=== PATIENT | male | born 1965 | race Caucasian/White ===

== ENCOUNTER 2020-04-02 08:22 | Outpatient (REF) | payer SELFPAY ==
[2020-04-02 11:16] LABS: Blood Donor Cholesterol 145
== END 2020-04-02 08:23 | disposition home or self-care (01) ==
LOC: HO.LNP 08:22
PROVIDERS: Visit Provider Pathology Anatomic Pathology & Clinical Pathology
DX: Z13.220 Encounter for screening for lipoid disorders (principal)
CPT/HCPCS: 36415; 82465

== ENCOUNTER 2020-05-28 11:36 | Outpatient (REF) | payer SELFPAY ==
[2020-05-28 12:39] LABS: Cholesterol 169 mg/dL
[2020-05-28 12:59] LABS: SARS COV2 IgG Negative (Negative)
== END 2020-05-28 11:37 | disposition home or self-care (01) ==
LOC: HO.LNC 11:36
PROVIDERS: Visit Provider Pathology Anatomic Pathology & Clinical Pathology
DX: Z20.828 Contact with and (suspected) exposure to other viral communicable diseases (principal)
CPT/HCPCS: 82465; 86769

== ENCOUNTER 2024-07-29 15:22 | Emergency (ER) | payer BC, SELFPAY ==
--- NOTE | ~2024-07-29 | US_ITS ---
CLINICAL HISTORY: pain swelling Venous duplex ultrasound right lower extremity Comparison: None Findings: The visualized deep veins are fully compressible with normal Doppler color flow and spectral tracings. Superior to the right patella in the subcutaneous tissues there is a heterogeneous nonvascular hypoechoic collection, which may be a hematoma within the subcutaneous tissues or complex prepatellar bursa. IMPRESSION: 1. Negative for right lower extremity deep vein thrombosis. 2. Superior to the right patella is a heterogeneous nonvascular hypoechoic collection, which could be a hematoma or complex prepatellar bursa. This document has been electronically signed by: Lino Sorensen MD on 07/29/2024 19:03:56
--- NOTE | ~2024-07-29 | XR_ITS ---
CLINICAL HISTORY: fall 5 view right knee Comparison: None Findings: No fractures or dislocations. No significant arthritic change or erosions. No joint effusion. No radiopaque foreign body. IMPRESSION: 1. No acute findings. This document has been electronically signed by: Anitra Arora MD on 07/29/2024 16:19:04
[2024-07-29 15:37] VITALS: BP 144/64; PULSE 76; RESP 19; TEMP 37.1; O2SAT 98; BMI 36.2
--- NOTE | 2024-07-29 15:40 | ED.EXTPRO ---
HPI - Extremity Problem General Chief complaint: Extremity Injury, Lower Stated complaint: right knee swelling/pain fell 07/19 Time Seen by Provider: 07/29/24 17:47 History of Present Illness ED Provider: Johnny Galvez MD Related Data Previous Rx's ?Medication ?Instructions ?Recorded cefadroxil 500 mg capsule 500 mg PO BID 5 days #10 caps 07/29/24 Allergies Allergy/AdvReac Type Severity Reaction Status Date / Time bee pollen [BEE STINGS] Allergy Unknown ANAPHYLAXIS Verified 07/29/24 15:41 [facility] Social History Social History (System 03/09/24 @ 16:10 by Jannette Shepherd) Smoked in Last 30 Days: No Use of substances other than those prescribed or required for medical reasons: No Advance Directives: No Advance Directives Information Provided: Yes Do you have a plan to hurt others: No Plan Physical Exam Vital Signs: Vital Signs: Last Vital Signs Temp 97.8 F 07/29/24 19:08 Pulse 61 07/29/24 19:08 Resp 18 07/29/24 19:08 BP 138/49 L 07/29/24 19:08 Pulse Ox 100 07/29/24 19:08 O2 Del Method Room Air 07/29/24 19:08 BMI result Body Mass Index 36.2 Course Course Course Narrative: 59 yo male with PMH of HLD, anxiety, HTN, not on blood thinners here with c/o 1 week ago fell directly on R knee it swelled up 2 hours later he saw his PCP who reported negative xrays he notes the leg is now swollen and he has bruising up the back of the leg. He has never had a clot before. No CP/SOB. No travel after the injury. He is nervous that given the leg is swollen he has infection or DVT. On exam leg is not red or hot has sig joint effusion suspect hemarthrosis and has bruising up the leg as well. He will need xray and blood studies, DVT study ordered this is a RAPID medical screening exam the rest of the history and physical exam is to be done by the main provider. Medications Administered Discontinued Medications Generic Name Dose Route Start Last Admin Trade Name Freq PRN Reason Stop Dose Admin Cephalexin HCl 500 mg 07/29/24 18:49 07/29/24 18:56 Cephalexin 500 Mg Capsule PO 07/29/24 18:50 500 mg ONCE ONE Administration Lidocaine/Epinephrine 10 ml 07/29/24 18:13 07/29/24 18:40 Lidocaine Hcl 1%/Epi 1:100,000 10 Ml Vial INFILTRATI 07/29/24 18:14 10 ml ONCE ONE Administration Medical Decision Making Medical Decision Making [facility] Narrative: 59-year-old male fell 1 week ago on the right knee. Prior to my evaluation DVT has been excluded. The patient an outpatient x-ray excluding bony fracture per his verbal report. He has diffuse swelling limiting his ability to flex the knee and bear weight. Feel some swelling extending down the leg. shared decision-making I offered therapeutic incision and drainage due to the severity of the subcutaneous hemorrhage which was identified on ultrasound as not involving the joint could be bursa or subcutaneous. Either way the patient was agreeable we made an 2 cm incision and drained copious clots out I would EMS estimated approximately 100-150 cc of clot. Patient tolerated well we put on a pressure dressing left a packing and the patient will follow up with the wound care he is unable to get there he can come back here for wound evaluation in 2 days. We will start antibiotics due to the invasive nature of the procedure. Lab Data [facility] Lab Attestation statement: I reviewed the patient's lab results. Mild anemia from baseline. I have advised the patient not donate blood which he was supposed to as he does regularly this coming Wednesday07/29/24 16:33 07/29/24 16:33 Labs: Lab Results 07/29/24 Range/Units 16:33 WBC 7.0 (4.8-10.8) X10*3/uL RBC 4.19 L (4.60-5.80) X10*6/uL Hgb 11.4 L (14.0-18.0) g/dl Hct 35.6 L (42.0-52.0) % MCV 85.0 (80.0-98.0) fL MCH 27.2 (27.0-33.0) pg MCHC 32.0 (31.0-36.0) g/dl RDW 14.6 (11.0-16.0) % Plt Count 225 (160-400) X10*3/uL MPV 9.8 (9.4-12.4) fL Immature Gran % (Auto) 0.3 (0.0-0.4) % Neut % (Auto) 69.6 (45-73) % Lymph % (Auto) 16.8 L (20-40) % [place] % (Auto) 11.1 H (2-11) % Eos % (Auto) 1.8 (0-4) % Baso % (Auto) 0.4 (0-2) % Lymph # (Auto) 1.2 (1.2-4.9) X10*3/uL [place] # (Auto) 0.8 (0.1-1.2) X10*3/uL Eos # (Auto) 0.1 (0.0-0.4) X10*3/uL Baso # (Auto) 0.0 (0.0-0.2) X10*3/uL Abs Immat Gran (auto) 0.02 (0.00-0.03) X10*3/uL Absolute Neuts (auto) 4.9 (2.0-8.3) x10*3/uL Absolute Nucleated RBC 0.000 (0.0-0.012) X10*3/uL Nucleated RBC % (auto) 0.0 (0.0-0.2) /100WBC Sodium 141 (135-145) mmol/L Potassium 5.0 (3.3-5.1) mmol/L Chloride 108 (96-108) mmol/L Carbon Dioxide 28 (22-29) mmol/L Anion Gap 10 L (12-20) BUN 18 H (9-16) mg/dL Creatinine 0.74 (0.5-1.4) mg/dL Estim Creat Clear Calc 126.4 Estimated GFR > 60 Random Glucose 96 (60-115) mg/dL Calcium 9.4 (8.4-10.2) mg/dL Independent Interpretation I performed an independent interpretation of an: Ultrasound Interpretation: DVT negative. Procedures Abscess I/D Site: other ( Right knee) Side (if applicable): right Local Anesthetic: lidocaine 1% and with epi Amount of anesthesia used (mL): 10 Technique: incised with blade and ultrasound guided Amount of fluid expressed (mL): 150 Sent for culture/gram staining?: No Irrigation: Yes Packing used?: iodoform Critical Care Time Critical Care Time Attestation: Critical Care Procedure Note Authorized and Performed by: MD Name I, Johnny Galvez MD, independently performed critical care. Total critical care time: Approximately 30 minutes Due to a high probability of clinically significant, life threatening deterioration, the patient required my highest level of preparedness to intervene emergently and I personally spent this critical care time directly and personally managing the patient. This critical care time included obtaining a history; examining the patient; pulse oximetry; ordering and review of studies; arranging urgent treatment with development of a management plan; evaluation of patient's response to treatment; frequent reassessment; and, discussions with other providers. This critical care time was performed to assess and manage the high probability of imminent, life-threatening deterioration that could result in multi-organ failure. It was exclusive of separately billable procedures and treating other patients and teaching time. Brief narrative of care: Pt though HD stable has compartment bleeding resulting in significant blood loss and relative anemia. Discharge Plan Discharge Clinical Impression: Hematoma Patient Disposition: Home, Self-Care Instructions: Hematoma (ED) Additional Instructions: DISCHARGE DIAGNOSES: Hemorrhage in the skin above the knee. HISTORY OF PRESENTATION: Swelling 1 week after fall on the right knee] EMERGENCY DEPARTMENT COURSE,TESTS, TREATMENTS: While in the ED today DISCHARGE MEDICATIONS: antibiotics take them as prescribed prophylactically FOLLOW-UP: Call your primary or general physician soon as possible to discuss your symptoms, your ED visit and to discuss follow up plans we would like you to follow up in the [facility]. you need to have your wound evaluated in 2 days. If unable to be seen in 2 days go to your nearest urgent care center or return to our emergency department for wound check INSTRUCTIONS & RETURN PRECAUTIONS: If any symptoms change first call your primary physician, if it is after-hours your primary doctors office should have a provider slot floorperson you can speak with. If the symptoms are severe or very concerning to you then call 911 or return to the ED. return if you develop a severe heavy bleeding soaking the Kota wrap, lightheadedness, dizziness Johnny Galvez MD Emergency Physician [facility] Prescriptions: New cefadroxil 500 mg capsule 500 mg PO BID 5 Days Qty: 10 0RF Interventions: ED Discharge Assessment Last Done: 07/29/24 19:08 Discharge Date/Time: 07/29/24 19:08 Print Language: Swedish
[2024-07-29 16:41] LABS: MANUAL DIFF FLAG NO
[2024-07-29 16:46] LABS: Basophils Percent Auto 0.4 % (0-2); Eosinophils Absolute Auto 0.1 X10*3/uL (0.0-0.4); Eosinophils Percent Auto 1.8 % (0-4); Hematocrit 35.6 % (42.0-52.0); Hemoglobin 11.4 g/dl (14.0-18.0); Imm Gran Abs Auto 0.02 X10*3/uL (0.00-0.03); Imm Gran Pct Auto 0.3 % (0.0-0.4); Lymphocytes Absolute Auto 1.2 X10*3/uL (1.2-4.9); Lymphocytes Percent Auto 16.8 % (20-40); Mean Corpuscular Hemoglobin 27.2 pg (27.0-33.0); Mean Platelet Volume 9.8 fL (9.4-12.4); Monocytes Absolute Auto 0.8 X10*3/uL (0.1-1.2); Monocytes Percent Auto 11.1 % (2-11); Neutrophils Absolute Auto 4.9 x10*3/uL (2.0-8.3); Neutrophils Percent Auto 69.6 % (45-73); Platelet Count 225 X10*3/uL (160-400); Red Blood Count 4.19 X10*6/uL (4.60-5.80); Red Cell Distribution Width 14.6 % (11.0-16.0)
[2024-07-29 17:03] LABS: Anion Gap 10 (12-20); Blood Urea Nitrogen 18 mg/dL (9-16); Calcium 9.4 mg/dL (8.4-10.2); Carbon Dioxide 28 mmol/L (22-29); Chloride 108 mmol/L (96-108); Creatinine Clr Calc Pharmacy 126.4; Estimated Glomerular Filt Rate > 60; Glucose Random 96 mg/dL (60-115); Sodium 141 mmol/L (135-145)
--- NOTE | 2024-07-29 18:16 | PC.NURSE ---
ultrasound being completed at this time.
[2024-07-29 18:32] VITALS: BP 138/49; PULSE 61; RESP 18; O2SAT 100
[2024-07-29] MEDS: Lidocaine HCl 1%/Epi 1:100,000 10 ML VIAL INFILTRATI (18:40)
[2024-07-29] MEDS: cephALEXin 500 MG CAPSULE PO (18:56)
[2024-07-29 19:08] VITALS: BP 138/49; PULSE 61; RESP 18; TEMP 36.6; O2SAT 100
== END 2024-07-29 19:08 | disposition home or self-care (01) ==
PROVIDERS: Emergency Medicine; Emergency Provider Emergency Medicine; PCP Internal Medicine
DX: S80.01XA Contusion of right knee, initial encounter (principal); W19.XXXA Unspecified fall, initial encounter; M25.461 Effusion, right knee; M79.89 Other specified soft tissue disorders; I10 Essential (primary) hypertension; E78.5 Hyperlipidemia, unspecified; Y93.9 Activity, unspecified; Y92.9 Unspecified place or not applicable; Y99.9 Unspecified external cause status
CPT/HCPCS: 10140; 36415; 73564; 80048; 85025; 93971; 99284; J2004

== ENCOUNTER → 2024-07-29 15:38 | Outpatient (BNV) | payer BC, SELFPAY | PROVIDERS: PCP Internal Medicine; Visit Provider Radiology Diagnostic Radiology | DX: R22.41 Localized swelling, mass and lump, right lower limb (principal); S80.01XA Contusion of right knee, initial encounter | CPT/HCPCS: 73564; 93971 ==

== ENCOUNTER 2024-08-30 08:21 | Outpatient (REF) | payer BC, SELFPAY ==
--- NOTE | ~2024-08-30 | XR_ITS ---
EXAMINATION: XR KNEE, RIGHT CLINICAL INFORMATION: M25.569 - Pain in unspecified knee COMPARISON: 07/29/24 TECHNIQUE: AP view bilateral knees standing, patellofemoral views right knee. FINDINGS: Left Knee: Normal imaging appearance. Minimal medial and lateral compartment joint space loss. Normal soft tissues. Right Knee: No fracture, dislocation, or suspicious bone lesion. Lateral compartment joint space narrowing. Normal alignment. Mild osteoarthrosis patellofemoral compartment, most significant lateral facet. Normal soft tissues. XR/XR knee RT 2V IMPRESSION: 1. Minimal osteoarthritis bilateral knees. Electronically signed by: Shayne Stewart MD 09/04/2024 09:12 AM EDT
--- OUTSIDE RECORDS SUMMARY | 2024-08-30 08:47 | XMS_ITS | Patient Health Record ---
Author Organization [facility] Address [address] [place] [address] Care Team Providers Care Transport Coordinator Name Role Phone Gilberto Griffin MD Primary Care Provider Renato Diamond [phone] Allergies Allergen (clinical drug ingredient) Drug/Non Drug Allergy documented on EMR Reaction Allergy Type Onset Date Status bees (uncoded) Unknown Allergy Activ e Reason For Referral No Information Medications Medication SIG (Take, Route, Frequency, Duration) Notes [...] Once a day for 30 day(s) Active Immunizations Vaccine Route Administration Date Status Comme nts Influenza Unknown 03/02/2019 Administered Social History Tobacco Use: Social History Observation Description Date Details (start date - stop date) Never Smoker NA - NA Tobacco Use/Smoking Question Answer Notes Patient is [...] Never (0 point) Points 2 Interpretation Negative Section Notes: Nonsmoker; no sig alcohol Nonsmoker; no sig alcohol co uple beers a week Problems Problem Type SNOMED Code ICD Code Onset Dates Problem Status W/U Status Risk Notes Problem Colon cancer screening (671152336) Colon cancer screening (Z12.11) Active confirmed Problem 794319485 Encounter for screening for malignant neoplasm of colon (Z12.11) Active confirmed Problem History of polyp of colon (situation) (656568202) Personal history of colonic polyps (Z86.010) Active confirmed Problem Pre-procedure evaluation check (196054818) Encounter for other preprocedural examination (Z01.818) Active confirmed Problem [id number] Preprocedural examination (Z01.818) Active confirmed Vital Signs Blood pressure diastolic 00 mm Hg 07/11/2024 Height 68 in 07/11/2024 Blood pressure systolic 00 mm Hg 07/11/2024 Weight 242 lbs 07/11/2024 BMI 36.79 kg/m2 07/11/2024 Encounters Encounter Location Date Provider Diagnosis [facility] [address] [place] [address] 07/11/2024 Renato Spencer Encounter for screen ing for malignant neoplasm of colon Z12.11 ; Encounter for other preprocedural examination Z01.818 ; Colon cancer screening Z12.11 and Personal history of colonic polyps Z86.010 Assessments Encounter Date Diagnosis (ICD Code) Assessment Notes Treatment Notes Treatment Clinical Notes Section Notes 07/11/2024 Encounter for screening for malignant neoplasm of colon (ICD-10 - Z12.11) Overall, Cherelle appears quite well. Given his personal history of a tubular adenoma removed over 5 years ago and his excellent clinical appearance, I did recommend a followup colonoscopy for further screening purposes. We did review the rationale for that in regard to colon cancer prevention. Full consent was obtained for this, including risks of bleeding and perforation. The procedure will be done with monitored anesthesia care. Cherelle was comfortable with this plan. Thank you again for allowing me to participate in Cherelle's care. I shall continue to keep you advised of his progress. 07/11/2024 Encounter for other preprocedural examination (ICD-10 - Z01.818) Overall, Cherelle appears quite well. Given his personal history of a tubular adenoma removed over 5 years ago and his excellent clinical appearance, I did recommend a followup colonoscopy for further screening purposes. We did review the rationale for that in regard to colon cancer prevention. Full consent was obtained for this, including risks of bleeding and perforation. The procedure will be done with monitored anesthesia care. Cherelle was comfortable with this plan. Thank you again for allowing me to participate in Cherelle's care. I shall continue to keep you advised of his progress. 07/11/2024 Colon cancer screening (ICD-10 - Z12.11) Overall, Cherelle appears quite well. Given his personal history of a tubular adenoma removed over 5 years ago and his excellent clinical appearance, I did recommend a followup colonoscopy for further screening purposes. We did review the rationale for that in regard to colon cancer prevention. Full consent was obtained for this, including risks of bleeding and perforation. The procedure will be done with monitored anesthesia care. Cherelle was comfortable with this plan. Thank you again for allowing me to participate in Cherelle's care. I shall continue to keep you advised of his progress. 07/11/2024 Personal history of colonic polyps (ICD-10 - Z86.010) Overall, Cherelle appears quite well. Given his personal history of a tubular adenoma removed over 5 years ago and his excellent clinical appearance, I did recommend a followup colonoscopy for further screening purposes. We did review the rationale for that in regard to colon cancer prevention. Full consent was obtained for this, including risks of bleeding and perforation. The procedure will be done with monitored anesthesia care. Cherelle was comfortable with this plan. Thank you again for allowing me to participate in Cherelle's care. I shall continue to keep you advised of his progress. Plan Of Treatment Future Test Test Name Order Date COLONOSCOPY 03/16/2019 COLONOSCOPY 07/11/2024 Next Appt Details Provider Name:Renato Spencer , 10/11/2024 10:30:00 AM, [address] [place] [address], [phone], Insurance Providers Payer Name Payer Address Payer Phone Subscriber Number Group Number Insured Name Patient Relationship to Insured Coverage Start Date Coverage End Date [facility] [address] [place], [place] [id number] CHERELLE VANN Self - patient is the insured Medical (General) History Medical History History ICD Code Hypertension Denies GA,DM,CVA,Lung disease,renal dise ase Neg. colonoscopies with Dr. Mullins in 2002 and 2007 except for some internal hemorrhoids Anxiety Hyperlipdeima Kidney stones Colonoscopy 04/2019 with a tubular adeno ma removed Left renal cancer 05/2023 treated with C ryoablation Surgical History Surgery Date(Month/Year) Tonsillectomy 1970 Early Melanoma removed between parth lerma 2022
--- OUTSIDE RECORDS SUMMARY | 2024-08-30 08:47 | XMS_ITS ---
Author Organization [facility] Address [address] [place] [address] Care Team Providers Care Jogger Operator Name Role Phone Gilberto Griffin MD Primary Care Provider Renato Diamond [phone] Allergies Allergen (clinical drug ingredient) Drug/Non Drug Allergy documented on EMR Reaction Allergy Type Onset Date Status bees (uncoded) Unknown Allergy Activ e REASON FOR VISIT patient presents today for screening colonoscopy Medications Medication SIG (Take, Route, Frequency, Duration) [...] e a day for 30 day(s) Active Social History Tobacco Use: Social History Observation [...] Negative Section Notes: Nonsmoker; no sig alcohol co uple beers a week Problems Problem Type SNOMED Code ICD Code Onset Dates Problem Status W/U Status Risk Notes Problem Colon cancer screening (483645102) Colon cancer screening (Z12.11) Active confirmed Problem Pre-procedure evaluation check (529963104) Encounter for other preprocedural examination (Z01.818) Active confirmed Problem History of polyp of colon (situation) (164823716) Personal history of colonic polyps (Z86.010) Active confirmed Vital Signs Blood pressure systolic 00 mm Hg 07/11/19 25 Blood pressure diastolic 00 mm Hg 025 Height 68 in 07/11/2024 Weight 242 lbs 07/11/2024 BMI 36.79 kg/m2 07/11/2024 Encounters Encounter Location Date Provider Diagnosis [facility] [address] [place] [address] 07/11/2024 Renato Spencer Encounter for screen ing [...] Provider Name:Renato Spencer , 10/11/2024 10:30:00 AM, [address] [place] [address], [id number], Progress Notes * SOO CHERELLEDOB:1965 (59 yo M)Acc No.[id number]:07/11/2024 Progress Notes Patient:?CHERELLE VANN Provider:?Renato Spencer MD :1965???Age:59 Y???Sex:Male Devon e:07/11/2024 Address:[address] [place], [place] [id number] Pcp:Gilberto Griffin MD Subjective: * Chief Complaints: * ???Patient presents today fo r screening colonoscopy * HPI: ???incontinence:? I saw Cherelle in the office today for evaluation of his personal history of a tubular adenoma of the colon and need for colorectal cancer screening. ?I last saw Cherelle in April of 2019, at which time he underwent a followup screening colonoscopy with removal of a small tubular adenoma. He presently feels very well. He enjoys a good appetite, without any significant heartburn or dysphagia. His bowel movements have been regular and without any signs of bleeding. He denies abdominal pain, jaundice, nor unintentional weight loss. He denies any known family history of colon cancer. * ROS:?General/Constitutional:?Change in appetite?denies.?Chills?denies.?Fatigue?denies.?Ophthalmologic:?Comments?all negative.?ENT:?Comments?all negative.?Respiratory:?hemoptysis?denies.?Cough?denies.?Cardiovascular:?Chest pain?denies.?Orthopnea?denies.?Gastrointestinal:?Comments?See HPI for details.?Genitourinary:?Hematuria?denies.?Dysuria?denies.?Musculoskeletal:?Painful joints?denies.?Weakness?denies.?Skin:?Itching?denies.?Rash?denies.?Neurologic:?Headache?denies.?Seizures?denies.?Psychiatric:?Comments?all negative.? * Medical History:? * Surgical History:?Tonsillect grisel 1970 Early Melanoma removed between shoulder blades 2022 * Hospitalization/Major Diagno stic Procedure:?No Hospitalization History. * Family History:?Father: dece ased, diagnosed with Heart disease.?Mother: .? No colorectal cancer. * Social History:?Tobacco Use:?Tobacco Use/Smoking?Patient is a?nonsmoker.?Drugs/Alcohol:?Alcohol Screen?Did you have a drink containing alcohol in the past year??Yes,?How often did you have a drink containing alcohol in the past year??2 to 4 times a month (2 points),?How many drinks did you have on a typical day when you were drinking in the past year??1 or 2 drinks (0 point),?How often did you have 6 or more drinks on one occasion in the past year??Never (0 point),?Points?2,?Interpretation?Negative.?Miscellaneous:?Marital status: Single. Occupation: [employer] ???Nonsmoker; no sig alcohol couple beers a week. * Medications:?TakingZetia 10 MG Tablet 1 tablet Orally Once a daySertraline HCl 50 MG Tablet 1 tablet Orally Once a dayLisinopril 10 MG Tablet 1 tablet Orally Once a dayRosuvastatin Calcium 40 MG Tablet TAKE 1 TABLET BY MOUTH EVERY DAY Oral amLODIPine Besylate 5 MG Tablet Oral Taking Zetia 10 MG Tablet 1 tablet Orally Once a dayTaking Sertraline HCl 50 MG Tablet 1 tablet Orally Once a dayTaking Lisinopril 10 MG Tablet 1 tablet Orally Once a dayTaking Rosuvastatin Calcium 40 MG Tablet TAKE 1 TABLET BY MOUTH EVERY DAY Oral Taking amLODIPine Besylate 5 MG Tablet Oral DiscontinuedCrestor 40 MG Tablet 1 tablet Orally Once a dayMedication List reviewed and reconciled with the patientDiscontinued Crestor 40 MG Tablet 1 tablet Orally Once a dayMedication List reviewed and reconciled with the patient * Allergies:?jie[Allergies Verified] Objective: * Vitals:?Wt: 242 lbs, Ht: 68 in, BMI:36.79 Index, BP: 00/00 mm Hg. * Examination: ???General Examination: ?GENERAL APPEARANCE:?pleasant, well nourished, well developed, in no acute distress.?EYES:?sclera non-icteric.?ORAL CAVITY:?mucosa moist.?NECK/THYROID:?no cervical lymphadenopathy, neck supple.?SKIN:?nonjaundiced, no spider angiomata.?HEART:?S1, S2 normal.?LUNGS:?clear to auscultation bilaterally.?ABDOMEN:?normal bowel sounds, no guarding or rigidity, no guarding or rigidity, no masses palpable, soft, nontender, nondistended.?EXTREMITIES:?no edema.?NEUROLOGIC:?alert and oriented.? Assessment: * Assessment: 1.?Encounter for other prepr ocedural examination - Z01.818 (Primary)?2.?Encounter for screening for malignant neoplasm of colon - Z12.11?3.?Colon cancer screening - Z12.11?4.?Personal history of colonic polyps - Z86.010? Overall, Cherelle appears quite well. Given his [...] to keep you advised of his progress. Plan: * Treatment: 2.?Colon cancer screening?Procedure: COLONOSCOPY (Ordered for 07/11/2024)* with MACsched for 10/11/24 at 10:30 ammiralax 3.?Personal history of colonic polyps?Procedure: COLONOSCOPY (Ordered for 07/11/2024)* with MACsched for 10/11/24 at 10:30 ammiralax * Procedure Codes:?3017F COLOR ECTAL CA SCREEN DOC [id number] TOBACCO NON-[id number] BP SCR NOT PRFRM REC REASON NOS * Preventive Medicine:? ??Counseling:?Care goal follow-up plan:?Above Normal BMI Follow-up?Giving encouragement to exercise,?BMI management provided?Yes.? * Follow Up:?prn * * Sign off status: Completed true * Provider:?Renato Spencer MD Date:? 025 Generated for Richard de souza/Jacob/eTransmitting on:?08/30/2024 08:47 AM EST History and Physical Notes * HPI (History of Present Illness) Category Sub-Category Detail Notes Category Not es incontinence I saw Cherelle in the office today for evaluation of his personal history of a tubular adenoma of the colon and need for colorectal cancer screening. I last saw Cherelle in April of 2019, at which time he underwent a followup screening colonoscopy with removal of a small tubular adenoma. He presently feels very well. He enjoys a good appetite, without any significant heartburn or dysphagia. His bowel movements have been regular and without any signs of bleeding. He denies abdominal pain, jaundice, nor unintentional weight loss. He denies any known family history of colon cancer. Examination Category Sub-Category Detail Notes Category Not es General Examination GENERAL APPEARANCE: pleasant , well [...]
== END 2024-08-30 08:22 | disposition home or self-care (01) ==
LOC: HO.HOSX 08:21
PROVIDERS: Visit Provider Physician Assistant
DX: M25.561 Pain in right knee (principal)
CPT/HCPCS: 73560

== ENCOUNTER 2024-08-30 14:03 | Outpatient (AMB) | payer BC, SELFPAY ==
--- NOTE | 2024-08-30 14:07 | MHC.OFFVIS ---
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 Patient reports having a fall directly onto his right knee, he presented to [facility] about 1 week after his fall. States having a large hematoma that was drained at [facility]. Currently his swelling has improved however he has ongoing swelling, tenderness, and numbness that is now traveling down to his calf. States resistance with attempting to bend his knee. Elevation helps with swelling. He has completed antibiotics that was prescribed by ED. 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 He states a week later he continued to experience swelling and difficulty with bending the knee so he went to the ED and they lanced the knee and expressed 100-150 cc of clotted blood. They placed him on abx which she has since completed. He states he continues to have stiffness in the knee. The knee still feels tight but he is not experiencing any worsening pain or redness. [facility] Social History (Updated 08/30/24 @ 14:14 by ALESSANDRA Velázquez) Patient Tobacco Use Status: Never used Tobacco Current occupational status: employed Current occupation: [employer] Review of Systems Const All systems reviewed & are unremarkable except as noted in HPI and below Physical Exam Vital Signs: BMI result Body Mass Index 36.2 Const General: cooperative and no acute distress Orientation/consciousness: patient oriented x3 Resp Effort & Inspection: normal respiratory effort and able to speak in complete sentences Cardio Peripheral pulses: Peripheral pulses 2+ throughout Neuro General: patient oriented x3 Extrem Other: Right knee is normal to inspection he does have a healing abrasion over the anterior portion of the patella. Medial-sided wound is closed. No surrounding erythema. There is some evidence of hematoma along the medial aspect of the knee into the thigh. No bogginess no fluctuance. No significant swelling in the joint itself. He is able to perform straight leg raise no palpable defect along the quad or patellar tendon. He can bend the knee to 90 degrees with some discomfort. Calf supple and nontender neurovascularly intact. Results Reviewed Results Reviewed: X-rays of the right knee obtained in the office today and reviewed by me are negative for any acute or fractures or dislocations. Assessment & Plan Assessment & Plan (1) Hematoma of right knee region: Code(s): S80.01XA - Contusion of right knee, initial encounter Category: Medical Plan: I do agree that this appears to be a hematoma that we will continue to resolve on its own. I recommend warm compress to the area 3 to 4 times a day for 20 minute intervals. He can also perform massage to the area to help break up the clot. We ordered a course of physical therapy to work on his motion. I did entertain the option to aspirate the joint to see if this will relieve some of the pressure however on exam I do not feel there was a significant amount of effusion in the joint and did not find this would be beneficial. We will see how he does over the next 3-4 weeks if symptoms persist or worsen or there is concerns he will contact our office otherwise follow up as needed. Orders: Orders XR knee LT 1V Today Estela Siu PA-C M25.562 - Pain in left knee PT Evaluation and Treatment Today Estela Siu PA-C S80.01XA - Contusion of right knee, initial encounter XR knee RT 2V Today Estela Siu PA-C M25.569 - Pain in unspecified knee Medications: Discontinued cefadroxil Discontinued Reason: Patient Completed Course 500 mg PO BID 10 caps 0RF 5 days ALESSANDRA Velázquez Coding Level of Care Code New Pt Level 3 (90690) Complex EM visit Add On G2211 Diagnoses Hematoma of right knee region S80.01XA
[2024-08-30 14:08] VITALS: BMI 36.2
== END 2024-08-30 14:43 | disposition home or self-care (01) ==
PROVIDERS: PCP Internal Medicine; Visit Provider Physician Assistant
DX: S80.01XA Contusion of right knee, initial encounter (principal); W19.XXXA Unspecified fall, initial encounter
CPT/HCPCS: 99203

== ENCOUNTER → 2024-08-30 14:04 | Outpatient (BNV) | payer BC, SELFPAY | PROVIDERS: Visit Provider Radiology Diagnostic Radiology | DX: M25.561 Pain in right knee (principal) | CPT/HCPCS: 73560 ==

== ENCOUNTER 2024-09-12 09:15 | Outpatient (RCR) | payer BC, SELFPAY | END 2024-09-12 09:38 | disposition home or self-care (01) | LOC: HO.WCC 09:15 | PROVIDERS: PCP Internal Medicine; Visit Provider Surgery | DX: L97.112 Non-pressure chronic ulcer of right thigh with fat layer exposed (principal) | CPT/HCPCS: 99212; 99214 ==

== ENCOUNTER 2024-10-11 09:23 | Day surgery (SDC) | payer BC, SELFPAY ==
--- OUTSIDE RECORDS SUMMARY | 2024-08-24 08:08 | XMS_ITS | Patient Health Record ---
Author Organization [facility] Address [address] [place] [address] Care Team Providers Care Motorcycle Riding Instructor Name Role Phone Gilberto Griffin MD Primary Care Provider Renato Diamond [phone] ALLERGIES Allergen (clinical drug ingredient) Drug/Non Drug Allergy documented on EMR Reaction Allergy Type Onset Date Status bees (uncoded) Unknown Allergy Activ e REASON FOR REFERRAL No Information MEDICATIONS Medication SIG (Take, Route, Frequency, Duration) Notes Start Date End Date Status amLODIPine Besylate 5 MG Oral for 90 Active Zetia 10 MG 1 tablet Orally Once a day for 30 day(s) Active Sertraline HCl 50 MG 1 tablet Orally Onc e a day for 30 day(s) Active Rosuvastatin Calcium 40 MG TAKE 1 TABLET BY MOUTH EVERY DAY Oral for 90 Active Lisinopril 10 MG 1 tablet Orally Once a day for 30 day(s) Active IMMUNIZATIONS Vaccine Route Administration Date Status Comme nts Influenza Unknown 03/02/2019 Administered SOCIAL HISTORY Tobacco Use: Social History Observation Description Date Details (start date - stop date) Never Smoker NA - NA Sex Assigned At : Social History Observation Description Sex Assigned At Unknown Tobacco Use/Smoking Question Answer Notes Patient is a nonsmoker Alcohol Screen Question Answer Notes Did you have a drink contain ing alcohol in the past year? Yes How often did you have a dri nk containing alcohol in the past year? 2 to 4 times a month (2 points) How many drinks did you have on a typical day when you were drinking in the past year? 1 or 2 drinks (0 point) How often did you have 6 or more drinks on one occasion in the past year? Never (0 point) Points 2 Interpretation Negative PROBLEMS Problem Type ICD Code Onset Dates Problem Status W/U Status Risk SNOMED Code Notes Problem Colon cancer screening (Z12.11) Active confirmed Colon cancer screening (347397779) Problem Encounter for screening for malignant neoplasm of colon (Z12.11) Active confirmed 879173363 Problem Personal history of colonic polyps (Z86.010) Active confirmed History of polyp of colon (situation) (565665340) Problem Encounter for other preprocedural examination (Z01.818) Active confirmed Pre-procedure evaluation check (036932799) Problem Preprocedural examination (Z01.818) Active confirmed [id number] VITAL SIGNS Blood pressure diastolic 00 mm Hg 07/11/2024 Height 68 in 07/11/2024 Blood pressure systolic 00 mm Hg 07/11/2024 Weight 242 lbs 07/11/2024 BMI 36.79 kg/m2 07/11/2024 Encounters Encounter Location Date Provider Diagnosis [facility] [address] [place] [address] 07/11/2024 Renato Spencer Encounter for screen ing for malignant neoplasm of colon Z12.11 ; Encounter for other preprocedural examination Z01.818 ; Colon cancer screening Z12.11 and Personal history of colonic polyps Z86.010 ASSESSMENTS Encounter Date Diagnosis Assessment Notes Treatment Notes Treatment Clinical Notes 07/11/2024 Encounter for screening for malignant neoplasm of colon (ICD-10 - Z12.11) 07/11/2024 Encounter for other preprocedural examination (ICD-10 - Z01.818) 07/11/2024 Colon cancer screening (ICD-10 - Z12.11) 07/11/2024 Personal history of colonic polyps (ICD-10 - Z86.010) PLAN OF TREATMENT Future Test Test Name Order Date COLONOSCOPY 03/16/2019 COLONOSCOPY 07/11/2024 Next Appt Details Provider Name:Renato Spencer , 10/11/2024 10:30:00 AM, [address] [facility] , [place], [place], [phone], Insurance Providers Payer Name Payer Address Payer Phone Subscriber Number Group Number Insured Name Patient Relationship to Insured Coverage Start Date Coverage End Date [facility] [address] [place], [place] [id number] CHERELLE VANN Self - patient is the insured MEDICAL (GENERAL) HISTORY Medical History History ICD Code Hypertension Denies IN,DM,CVA,Lung disease,renal dise ase Neg. colonoscopies with Dr. Mullins in 2002 and 2007 except for some internal hemorrhoids Anxiety Hyperlipdeima Kidney stones Colonoscopy 04/2019 with a tubular adeno ma removed Left renal cancer 05/2023 treated with C ryoablation Surgical History Surgery Date(Month/Year) Tonsillectomy 1970 Early Melanoma removed between parth lerma 2022
--- OUTSIDE RECORDS SUMMARY | 2024-08-24 08:08 | XMS_ITS ---
Author Organization [facility] Address [address] [place] [address] Care Team Providers Care Forming Machine Adjuster Name Role Phone Gilberto Griffin MD Primary Care Provider Renato Diamond [phone] ALLERGIES Allergen (clinical drug ingredient) Drug/Non Drug Allergy documented on EMR Reaction Allergy Type Onset Date Status bees (uncoded) Unknown Allergy Activ e REASON FOR VISIT patient presents today for screening colonoscopy MEDICATIONS Medication SIG (Take, Route, Frequency, Duration) Notes Start Date End Date Status amLODIPine Besylate 5 MG Oral for 90 Active Zetia 10 MG 1 tablet Orally Once a day for 30 day(s) Active Rosuvastatin Calcium 40 MG TAKE 1 TABLET BY MOUTH EVERY DAY Oral for 90 Active Lisinopril 10 MG 1 tablet Orally Once a day for 30 day(s) Active Sertraline HCl 50 MG 1 tablet Orally Onc e a day for 30 day(s) Active SOCIAL HISTORY Tobacco Use: Social History Observation [...] screening (Z12.11) Active confirmed Colon cancer screening (291700780) Problem Encounter for other preprocedural examination (Z01.818) Active confirmed Pre-procedure evaluation check (087805676) Problem Personal history of colonic polyps (Z86.010) Active confirmed History of polyp of colon (situation) (965291636) VITAL SIGNS Blood pressure systolic 00 mm Hg 07/11/19 25 Blood pressure diastolic 00 mm Hg 025 Height 68 in 07/11/2024 Weight 242 lbs 07/11/2024 BMI 36.79 kg/m2 07/11/2024 Encounters Encounter Location Date Provider Diagnosis [facility] [address] [place] [address] 07/11/2024 Renato Spencer Encounter for screen ing [...] Future Test Test Name Order Date COLONOSCOPY 07/11/2024 Next Appt Details Follow Up: prn, Reason: Provider Name:Renato Spencer , 10/11/2024 10:30:00 AM, [address] [place] [address] , [place], [place], [phone], Progress Notes * Examination Category Sub-Category Detail Notes General Examination GENERAL APPEARANCE: pleasant , well nourished, well developed, in no acute distress HEAD: EYES: sclera non-icteric EARS: NOSE: THROAT: NECK/THYROID: no cervical lymphade nopathy, neck supple HEART: S1, S2 normal CHEST: LUNGS: clear to auscultatio n bilaterally ABDOMEN: normal bowel sounds, no guarding or rigidity, no guarding or rigidity, no masses palpable, soft, nontender, nondistended NEUROLOGIC: alert and oriented SKIN: nonjaundiced, no spi eun angiomata EXTREMITIES: no edema PERIPHERAL PULSES: BACK: BREASTS: MUSCULOSKELETAL: MALE GENITOURINARY: LYMPH NODES: RECTAL EXAM: FEMALE GENITOURINARY: ORAL CAVITY: mucosa moist
[2024-10-09 14:24] VITALS: BMI 36.8
[2024-10-11 09:32] VITALS: BMI 36.8
[2024-10-11 09:48] VITALS: BP 134/75; PULSE 65; RESP 18; TEMP 36.8; O2SAT 98
[2024-10-11] MEDS: Lactated Ringers 1,000 ML 100 ML IVCONT (09:59)
--- NOTE | 2024-10-11 11:04 | P.CONAN_ITS ---
[facility] Active Problems Active Problems: All Active Problems Hematoma of right knee region (Acute) Past Medical History Medical History Personal history of renal cancer (05/2023) Kidney stones Anxiety HLD (hyperlipidemia) HTN (hypertension) Surgical History Surgical History Hx of melanoma excision (2022) Hx of tonsillectomy (1969) Hx of colonoscopy (2018) History of Problems with Anesthesia: No Social History Social History Household Members Other:: lives alone Are you a primary overnight caregiver to a significant other at home: No Do you presently have visiting nurse or other home services: No Patient Tobacco Use Status: Never used Tobacco Use of substances other than those prescribed or required for medical reasons: No Have you been hit, kicked, punched, or otherwise hurt by someone within the past year? If so, by whom?: No Are you DNR?: No Advance Directives: No Advance Directives Information Provided: Yes Advance Directives on File: No Poor oral hygiene: No Current occupational status: employed Current occupation: [employer] Allergies Allergy/AdvReac Type Severity Reaction Status Date / Time bee pollen [BEE STINGS] Allergy Unknown ANAPHYLAXIS Verified 08/30/24 14:12 Active Medications: Current Medications Lactated Ringer's (Lr) 1,000 mls @ 100 mls/hr IVCONT .Q10H ESVIN Last Admin: 10/11/24 09:59 Dose: 100 mls/hr Sodium Biphosphate/Sodium Phosphate (Sodium Phosphate,[place]-Dibasic 133 Ml Enema) 133 ml DE ONCE PRN PRN Reason: Poor Colonoscopy Prep Results Home Medications ?Medication ?Instructions ?Recorded ?Confirmed ?Last Taken ?Type amlodipine 5 mg tablet 5 mg PO DAILY 08/30/24 10/11/24 10/11/24 09:00 History ezetimibe 10 mg tablet 10 mg PO DAILY 08/30/24 10/09/24 Unknown History lisinopril 10 mg tablet 10 mg PO DAILY 08/30/24 10/09/24 Unknown History rosuvastatin 40 mg tablet 40 mg PO DAILY 08/30/24 10/09/24 Unknown History sertraline 50 mg tablet 50 mg PO DAILY 08/30/24 10/09/24 Unknown History Exam Height,Weight and Vital Signs: Height 5 ft 8 in Weight 109.7 kg Last Vital Signs Temp 98.3 F 10/11/24 09:48 Pulse 65 10/11/24 09:48 Resp 18 10/11/24 09:48 BP 134/75 10/11/24 09:48 Pulse Ox 98 10/11/24 09:48 O2 Del Method Room Air 10/11/24 09:48 Airway Mallampati Class: III TM Dist: >3cm Neck ROM: Full Loose/Missing/Broken Teeth: No Heart: RRR Lungs: CTA Assessment and Plan Assessment Anesthesia Assessment: Anesthesia Plan Discussed and Chart Reviewed Final Anesthetic Review History of Problems with Anesthesia: No NPO: Yes ASA Class: II Final Preanesthetic Review: Meds/Allgs Chart Reviewed, Consent Obtained/Reviewed and Anes Risks/Benef Reviewed Patient Risk: Low Procedure Risk: Low Anesthetic Plan Anesthetic Plan: MAC: Disposition: Standard PACU
[2024-10-11 11:55] VITALS: BP 114/61; PULSE 68; RESP 18; TEMP 36.6; O2SAT 97
--- NOTE | 2024-10-11 11:59 | P.BOP_ITS ---
Brief Operative Note Date of Service: 10/11/24 Pre-op diagnosis: Screening Post-op diagnosis: other (Polyp) Procedure: Colonoscopy to the cecum with hot snare polypectomy Surgeon: Renato Spencer MD Anesthesia: MAC Was an Corset Maker used for this Procedure?: No Estimated blood loss (mL): 0 Pathology: other (A. Ascending colon polyp) Condition: stable Disposition: PACU
[2024-10-11 12:10] VITALS: BP 124/74; PULSE 68; RESP 18; TEMP 36.2; O2SAT 97
--- NOTE | 2024-10-11 14:45 | OP_ITS ---
DATE OF SERVICE: 10/11/2024 SURGEON: Renato Spencer MD INDICATIONS: The patient presents for evaluation of personal history of tubular adenoma of the colon and colorectal cancer screening. Full consent has been obtained from him for this, including risks of bleeding and perforation. PREOPERATIVE DIAGNOSIS: Personal history of tubular adenoma of the colon. POSTOPERATIVE DIAGNOSIS: Personal history of tubular adenoma of the colon, colon polyp, diverticulosis, and internal hemorrhoids. PROCEDURE PERFORMED: Colonoscopy to cecum with hot snare polypectomy. ESTIMATED BLOOD LOSS: COMPLICATIONS: ANESTHESIA: Medication used, monitored anesthesia care. ASSISTANTS: SPECIMENS: DESCRIPTION OF PROCEDURE: The patient was placed in left lateral decubitus position. The digital rectal exam revealed no abnormalities. The Olympus video pediatric colonoscope was entered into the rectum and advanced easily to the cecum. Once in the cecum, I did identify normal-appearing cecal pouch with appendiceal orifice and normal-appearing ileocecal valve. The entire cecum and ileocecal valve appeared normal. Scope was slowly withdrawn assessing all mucosal surfaces carefully. Preparation was excellent. In the ascending colon, there was an approximately 10 to 12 mm flat, but raised polyp, which was removed by hot snare polypectomy, recovered by suction. The polypectomy site appeared clean, without any sign of residual polyp nor bleeding. I did not visualize any other polyps, colitis, nor angiodysplasia. There was a mild amount of sigmoid diverticulosis. In the rectum, the scope was retroflexed visualizing internal hemorrhoids, but no other pathology. The rectal mucosa appeared normal. The scope was straightened and withdrawn from the patient. He tolerated the procedure well and was returned to the recovery area in stable condition. IMPRESSION: 1. Colon polyp. 2. Diverticulosis. 3. Internal hemorrhoids. PLAN: The results of the pathology will be checked. I would recommend a repeat colonoscopy in 5 years. He was advised not to use any aspirin or NSAIDs for 1 week. He will otherwise see me on a p.r.n. basis. MD MOLLY Das/PANDA / [phone]
== END 2024-10-11 12:45 | disposition home or self-care (01) ==
PROVIDERS: PCP Internal Medicine; Visit Provider Internal Medicine
PROC: 0DJD8ZZ Inspection of Lower Intestinal Tract, Via Natural or Artificial Opening Endoscopic (ICD-10-PCS; CPT 45378; principal; 2024-10-11 10:30)
DX: Z12.11 Encounter for screening for malignant neoplasm of colon (principal); Z86.0101 Personal history of adenomatous and serrated colon polyps; D12.2 Benign neoplasm of ascending colon; K57.30 Diverticulosis of large intestine without perforation or abscess without bleeding; K64.8 Other hemorrhoids; I10 Essential (primary) hypertension; E78.5 Hyperlipidemia, unspecified; F41.9 Anxiety disorder, unspecified; N20.0 Calculus of kidney; Z85.528 Personal history of other malignant neoplasm of kidney; Z85.820 Personal history of malignant melanoma of skin; Z79.899 Other long term (current) drug therapy
CPT/HCPCS: 45385; 88305; J2003; J2704

== ENCOUNTER 2024-10-11 14:02 | Outpatient (RCR) | payer BC, SELFPAY ==
--- NOTE | 2024-09-14 09:47 | MHC.PT.EP ---
[facility] [place] Office [place] Office [place] [facility] [address] Phani Rossi [address] [phone] F: [phone] F: [phone] F: [phone] F: [phone] Physical Therapy Plan of Care Date of Evaluation: 09/14/24 Date of Surgery: Diagnosis: hematoma of right knee region (RL) Assessment: pt is a 59 y/o male presenting to physical therapy w/ referring diagnosis of hematoma of right knee region. Impairments include pain, decreased range of motion, decreased strength, impaired functional mobility, impaired postural awareness, and altered ambulation mechanics. pt is a good candidate for skilled PT due to age, potential remediation of impairments, typical disease/condition progression and prognosis, comorbidities, and motivation. pt would benefit from skilled PT intervention to provide a tailored strengthening and stretching exercise program, functional training, gait training, postural re-training, neuromuscular re-education, modalities as needed for pain, equipment safety demonstration. Frequency and Duration: The patient will be seen 2x/wk for 4 wks Short Term Goals: pt will be I w/ HEP to promote self-management of condition. pt will improve R knee flexion by at least 10 degrees to promote ease in sitting posture. Half-Way Goals: pt will report a statistically significant improvement in self-reported outcome measure, LEFI, to promote return to PLOF. pt will improve R knee extension and flexion strength to 5/5 to promote ease in stair navigation. Treatment Plan: Modalities to reduce pain, spasms and effusion. Manual therapy to restore motion and function. Therapeutic exercise to improve strength and flexibility. Neuromuscular re-education for posture and balance. Therapeutic activities to return to functional activities of daily living. Electronically signed by: Sheela Ku PT, DPT Please sign and return to therapist. Thank you for your referral.
--- NOTE | 2024-11-07 15:20 | MHC.PT.DC ---
[facility] [place] Office [place] Office [place] Office [address] Phani Rossi [address] [phone] F: [phone] F: [phone] F: [phone] F: [phone] Physical Therapy Discharge Report Diagnosis: hematoma of right knee region (RL) Date of Surgery: Date of Evaluation: 09/14/24 Date of Discharge: 11/07/24 Treatments to Date: 8 Cancellations to Date: 1 No Shows to Date: 0 Discharge Status: Achieved Goals Improved Function Independent with [facility] Discharge Summary: The patient has achieved all goals established at initial evaluation. He does continue to present with fluctuations in swelling that seem to be directly related to standing all day at work. He is independent with his home exercise program. Discharge to [facility] at this time. Electronically signed by: Sheela Ku PT, DPT Please sign and return to therapist. Thank you for your referral.
== END 2024-11-07 15:21 | disposition home or self-care (01) ==
LOC: HO.PT 14:02
PROVIDERS: PCP Internal Medicine; Visit Provider Physician Assistant
DX: S80.01XD Contusion of right knee, subsequent encounter (principal); X58.XXXD Exposure to other specified factors, subsequent encounter
CPT/HCPCS: 97110; 97112; 97162; 97530